=== PATIENT | female | born 1970 | race Caucasian/White ===

== ENCOUNTER 2024-06-18 08:01 | Outpatient (CLI) | payer OTHER ==
[~2024-06-18 08:01] MED LIST: PERCOCET 5/3251 TAB PO; PRENATAL1 TAB PO
== END 2024-06-18 08:16 | disposition home or self-care (01) ==
LOC: SONOGRAMA 08:01
PROVIDERS: ATTEND Obstetrics & Gynecology
DX: N84.0 Polyp of corpus uteri (principal)